=== PATIENT | male | born 1955 | race Caucasian/White ===

== ENCOUNTER 2023-06-29 17:58 | Emergency (ER) | payer MEDICARE, OTHER ==
[~2023-06-29] VITALS: Ht 182.9 cm; Wt 68.2 kg
[~2023-06-29 17:58] MED LIST: ARIP10TA38 PO; QUET100T PO; TRAZ-252 PO; TRIH5TAB4 PO
[2023-06-29] MEDS ORDERED: LIDOCAINE 1% 10 ML VIAL SQ ONE (18:15)
[2023-06-29] MEDS ORDERED: FLUT12AE7 IH (18:19)
[2023-06-29] MEDS ORDERED: HYDR12.56 PO (18:19)
[2023-06-29] MEDS ORDERED: ALBU18HF12 IH (18:19)
[2023-06-29 18:28] VITALS: BP 150/101; PULSE 98; RESP 18; TEMP 98.4
[2023-06-29] MEDS ORDERED: IBUPROFEN 600 MG TABLET PO ONE (18:30)
[2023-06-29] MEDS ORDERED: IBUP-1554 PO (19:59)
== END 2023-06-29 21:30 | disposition home or self-care (01) ==
LOC: EMS 17:58
DX: S63.294A Dislocation of distal interphalangeal joint of right ring finger, initial encounter (principal); F31.9 Bipolar disorder, unspecified; F20.9 Schizophrenia, unspecified; Z59.00 Homelessness unspecified; W01.0XXA Fall on same level from slipping, tripping and stumbling without subsequent striking against object, initial encounter; Y93.89 Activity, other specified; Y92.89 Other specified places as the place of occurrence of the external cause; Y99.8 Other external cause status
CPT/HCPCS: 26770; 99284; 73140-TC; Z7502; Z7610

== ENCOUNTER 2024-01-20 09:31 | Emergency (ER) | payer MEDICARE, OTHER ==
[~2024-01-20] VITALS: Ht 188 cm; Wt 70.5 kg
[~2024-01-20 09:31] MED LIST changes: +ALBU18HF12 IH; -ARIP10TA38 PO; +FLUT12AE7 IH; +HYDR12.56 PO; +IBUP-1554 PO; -QUET100T PO
[2024-01-20 09:32] VITALS: TEMP 98
[2024-01-20 09:51] LABS: GLUCOMETER DEV NAME(LOC) ER.6; GLUCOSE,POINT OF CARE 134 MG/DL (70-110)
[2024-01-20 10:06] VITALS: BP 134/73; PULSE 98; RESP 18
== END 2024-01-20 10:14 | disposition home or self-care (01) ==
LOC: EMS 09:52
DX: E11.9 Type 2 diabetes mellitus without complications (principal); I10 Essential (primary) hypertension; F20.9 Schizophrenia, unspecified; F31.9 Bipolar disorder, unspecified; Z59.00 Homelessness unspecified; Z76.0 Encounter for issue of repeat prescription
CPT/HCPCS: 82962; 99282

== ENCOUNTER 2024-04-27 12:22 | Emergency (ER) | payer MEDICARE, OTHER ==
[~2024-04-27] VITALS: Ht 190.5 cm; Wt 68.1 kg
[2024-04-27] MEDS: HYDROGEN PEROXIDE 118 ML SOLUTION TP ONE (14:32)
[2024-04-27] MEDS ORDERED: IBUP-1506 PO (15:15)
[2024-04-27] MEDS ORDERED: AMOX250C4 PO (15:15)
[2024-04-27] MEDS: IBUPROFEN 400 MG TABLET PO ONE (15:21)
[2024-04-27] MEDS: AMOXICILLIN TRIHYDRATE 250 MG CAPSULE PO ONE (15:22)
[2024-04-27 15:23] VITALS: BP 121/76; PULSE 89; RESP 19; TEMP 97.5
== END 2024-04-27 15:47 | disposition home or self-care (01) ==
LOC: EMS 12:22
DX: H61.23 Impacted cerumen, bilateral (principal); H66.93 Otitis media, unspecified, bilateral; F31.9 Bipolar disorder, unspecified; E11.9 Type 2 diabetes mellitus without complications; I10 Essential (primary) hypertension; F20.9 Schizophrenia, unspecified; Z59.00 Homelessness unspecified
CPT/HCPCS: 69209; 99283

== ENCOUNTER 2024-06-29 14:20 | Emergency (ER) | payer MEDICARE, OTHER ==
[~2024-06-29] VITALS: Ht 180.3 cm; Wt 79.5 kg
[~2024-06-29 14:20] MED LIST changes: -ALBU18HF12 IH; +AMOX250C4 PO; -FLUT12AE7 IH; -HYDR12.56 PO; +IBUP-1506 PO; -IBUP-1554 PO; -TRAZ-252 PO; -TRIH5TAB4 PO
[2024-06-29] MEDS ORDERED: TRAZ-252 PO ×2 (14:29→15:35)
[2024-06-29] MEDS ORDERED: SENN-376 PO ×2 (14:29→15:35)
[2024-06-29] MEDS ORDERED: BENZ2TAB84 PO ×2 (14:29→15:35)
[2024-06-29] MEDS ORDERED: RISP-31 PO ×2 (14:29→15:35)
[2024-06-29] MEDS ORDERED: MELA5TAB40 PO (14:29)
[2024-06-29] MEDS ORDERED: SEVE800T38 PO ×2 (14:29→15:35)
[2024-06-29] MEDS ORDERED: IBUP-1492 PO (14:29)
[2024-06-29] MEDS ORDERED: FOLI-130 PO ×2 (14:29→15:35)
[2024-06-29 14:30] VITALS: BP 136/74; PULSE 72; RESP 18; TEMP 97.9; O2SAT 99
== END 2024-06-29 15:55 | disposition home or self-care (01) ==
LOC: EMS 14:20
DX: F31.9 Bipolar disorder, unspecified (principal); Z76.0 Encounter for issue of repeat prescription; F20.9 Schizophrenia, unspecified; I10 Essential (primary) hypertension
CPT/HCPCS: 99281; Z7502

== ENCOUNTER 2025-07-27 15:41 | Emergency (ER) | payer MEDICARE, OTHER ==
[~2025-07-27] VITALS: Ht 190.5 cm; Wt 70.5 kg
[~2025-07-27 15:41] MED LIST changes: -AMOX250C4 PO; +BENZ2TAB84 PO; +FOLI-130 PO; +IBUP-1492 PO; -IBUP-1506 PO; +MELA5TAB40 PO; +RISP-31 PO; +SENN-376 PO; +SEVE800T39 PO; +TRAZ-252 PO
[2025-07-27] MEDS ORDERED: TRIH5TAB4 PO (15:57)
[2025-07-27] MEDS ORDERED: TRAZ-257 PO (15:57)
[2025-07-27 15:58] VITALS: TEMP 98.6
[2025-07-27] MEDS: LIDOCAINE 1% 10 ML VIAL ID ONE (17:51)
[2025-07-27] MEDS: PERTUSS(ACELL),DIPH,TET/PF 0.5 ML SYRINGE [ADULT] IM. ONE (17:57)
[2025-07-27 18:03] VITALS: BP 111/65; PULSE 89; RESP 18; O2SAT 97
== END 2025-07-27 19:41 | disposition home or self-care (01) ==
LOC: EMS 15:41
DX: S81.812A Laceration without foreign body, left lower leg, initial encounter (principal); F20.9 Schizophrenia, unspecified; F31.9 Bipolar disorder, unspecified; I10 Essential (primary) hypertension; F17.210 Nicotine dependence, cigarettes, uncomplicated; Z98.890 Other specified postprocedural states; Z59.00 Homelessness unspecified; Z79.899 Other long term (current) drug therapy; W26.8XXA Contact with other sharp object(s), not elsewhere classified, initial encounter; Y93.89 Activity, other specified; Y92.89 Other specified places as the place of occurrence of the external cause; Y99.8 Other external cause status
CPT/HCPCS: 99283; 90715; 90471; 12002; J3490

== ENCOUNTER 2025-08-04 11:23 | Emergency (ER) | payer MEDICARE ==
[~2025-08-04] VITALS: Ht 190.5 cm; Wt 68.2 kg
[~2025-08-04 11:23] MED LIST changes: -BENZ2TAB84 PO; -FOLI-130 PO; -IBUP-1492 PO; -MELA5TAB40 PO; -SENN-376 PO; -SEVE800T39 PO; -TRAZ-252 PO; +TRAZ-257 PO; +TRIH5TAB4 PO
[2025-08-04 11:30] VITALS: TEMP 98
[2025-08-04 11:36] VITALS: BP 123/69; PULSE 88; RESP 18; O2SAT 99
[2025-08-04] MEDS ORDERED: DOXY-354 PO (11:50)
[2025-08-04] MEDS ORDERED: CEPH-558 PO (11:50)
[2025-08-04] MEDS ORDERED: BACI28.410 TP (11:50)
== END 2025-08-04 12:01 | disposition home or self-care (01) ==
LOC: EMS 11:43
DX: L03.116 Cellulitis of left lower limb (principal); F20.9 Schizophrenia, unspecified; F31.9 Bipolar disorder, unspecified; I10 Essential (primary) hypertension; F17.210 Nicotine dependence, cigarettes, uncomplicated; Z98.890 Other specified postprocedural states; Z59.00 Homelessness unspecified; Z79.899 Other long term (current) drug therapy
CPT/HCPCS: 99283; Z7502

== ENCOUNTER 2025-08-21 13:21 | Emergency (ER) | payer MEDICARE ==
[~2025-08-21] VITALS: Ht 190.5 cm; Wt 70.5 kg
[~2025-08-21 13:21] MED LIST changes: +BACI28.410 TP; +CEPH-558 PO; +DOXY-354 PO
[2025-08-21 13:29] VITALS: TEMP 97.5
[2025-08-21 14:05] VITALS: BP 131/77; PULSE 97; RESP 18; O2SAT 98
== END 2025-08-21 14:30 | disposition home or self-care (01) ==
LOC: EMS 13:29
DX: S81.812D Laceration without foreign body, left lower leg, subsequent encounter (principal); F20.9 Schizophrenia, unspecified; F31.9 Bipolar disorder, unspecified; I10 Essential (primary) hypertension; F17.210 Nicotine dependence, cigarettes, uncomplicated; Z79.899 Other long term (current) drug therapy; Z59.00 Homelessness unspecified; Z98.890 Other specified postprocedural states; X58.XXXD Exposure to other specified factors, subsequent encounter
CPT/HCPCS: 99282; Z7502